=== PATIENT | female | born 1995 | race Caucasian/White ===

== ENCOUNTER 2018-06-12 16:17 | Emergency (ER) | payer SELFPAY ==
[~2018-06-12] VITALS: Wt 60.8 kg
[2018-06-12] MEDS ORDERED: ANTIBIOTIC28.4 GM T (17:11)
[2018-06-12] MEDS ORDERED: CLINDAMYCIN HC300 MG PO (17:11)
[2018-09-11] MEDS ORDERED: DOXYCYCLINE100 M3 PO (14:01)
== END 2018-06-12 17:13 | disposition home or self-care (01) ==
LOC: ED 16:17
DX: K08.89 Other specified disorders of teeth and supporting structures (principal); R21 Rash and other nonspecific skin eruption

== ENCOUNTER 2018-09-04 03:44 | Emergency (ER) | payer SELFPAY ==
[~2018-09-04] VITALS: Ht 170.1 cm; Wt 65.8 kg
[~2018-09-04 03:44] MED LIST: ANTIBIOTIC28.4 GM T; CLINDAMYCIN HC300 MG PO
[2018-09-04 04:05] LABS: BILIRUBIN NEGATIVE (NEGATIVE); BLOOD NEGATIVE (NEGATIVE); CLARITY SL CLOUDY (CLEAR); COLOR YELLOW (YELLOW); GLUCOSE NEGATIVE (NEGATIVE); KETONE NEGATIVE (NEGATIVE); LEUKO ESTERASE NEGATIVE (NEGATIVE); NITRITE NEGATIVE (NEGATIVE); SPECIFIC GRAVITY >= 1.030 (1.005-1.030); UROBILINOGEN 0.2 E.U./dl (0.2-1.0)
[2018-09-04 04:17] LABS: BACTERIA 1+; EPITHELIAL CELLS 45-50
[2018-09-11] MEDS ORDERED: DOXYCYCLINE100 M3 PO (14:01)
== END 2018-09-04 04:44 | disposition left against medical advice (07) ==
LOC: ED 03:44
PROVIDERS: Emergency Medicine
DX: Z11.3 Encounter for screening for infections with a predominantly sexual mode of transmission (principal); Z32.02 Encounter for pregnancy test, result negative; Z79.2 Long term (current) use of antibiotics

== ENCOUNTER 2018-09-08 13:53 | Emergency (ER) | payer SELFPAY ==
[~2018-09-08] VITALS: Wt 65.8 kg
[2018-09-08] MEDS ORDERED: VIBRAMYCIN100 MG PO (14:02)
[2018-09-11] MEDS ORDERED: DOXYCYCLINE100 M3 PO (14:01)
== END 2018-09-08 14:27 | disposition home or self-care (01) ==
LOC: ED 13:53
DX: A54.9 Gonococcal infection, unspecified (principal)

== ENCOUNTER 2018-11-10 20:35 | Emergency (ER) | payer SELFPAY ==
[~2018-11-10] VITALS: Ht 170.1 cm; Wt 69.4 kg
[~2018-11-10 20:35] MED LIST changes: +DOXYCYCLINE100 M3 PO; +VIBRAMYCIN100 MG PO
[2018-11-10 21:16] LABS: BILIRUBIN NEGATIVE (NEGATIVE); BLOOD TRACE-LYSED (NEGATIVE); CLARITY SL CLOUDY (CLEAR); COLOR YELLOW (YELLOW); GLUCOSE NEGATIVE (NEGATIVE); KETONE NEGATIVE (NEGATIVE); LEUKO ESTERASE 3+ (NEGATIVE); NITRITE NEGATIVE (NEGATIVE); SPECIFIC GRAVITY <= 1.005 (1.005-1.030); UROBILINOGEN 0.2 E.U./dl (0.2-1.0)
[2018-11-10 21:26] LABS: BACTERIA 1+; RBC 0-2 rbc/hpf (0-2)
[2018-11-10] MEDS ORDERED: SEPTDS PO (22:04)
== END 2018-11-10 22:30 | disposition home or self-care (01) ==
LOC: ED 20:35
PROVIDERS: Nurse Practitioner Family
DX: N89.8 Other specified noninflammatory disorders of vagina (principal); Z20.2 Contact with and (suspected) exposure to infections with a predominantly sexual mode of transmission

== ENCOUNTER 2018-11-13 16:54 | Emergency (ER) | payer SELFPAY ==
[~2018-11-13] VITALS: Ht 170.1 cm; Wt 69.4 kg
[~2018-11-13 16:54] MED LIST changes: +SEPTDS PO
[2018-11-13] MEDS ORDERED: CEPHALEXIN500 M1 PO (17:48)
== END 2018-11-13 18:00 | disposition home or self-care (01) ==
LOC: ED 16:54
DX: R21 Rash and other nonspecific skin eruption (principal); L08.9 Local infection of the skin and subcutaneous tissue, unspecified

== ENCOUNTER 2018-12-13 19:51 | Emergency (ER) | payer SELFPAY ==
[~2018-12-13] VITALS: Wt 54.4 kg
[~2018-12-13 19:51] MED LIST changes: +CEPHALEXIN500 M1 PO
[2018-12-13] MEDS ORDERED: DOXYCYCLINE100 M3 PO (20:32)
[2018-12-13 20:57] LABS: BILIRUBIN NEGATIVE (NEGATIVE); BLOOD NEGATIVE (NEGATIVE); CLARITY CLEAR (CLEAR); COLOR YELLOW (YELLOW); GLUCOSE NEGATIVE (NEGATIVE); KETONE NEGATIVE (NEGATIVE); LEUKO ESTERASE 1+ (NEGATIVE); NITRITE NEGATIVE (NEGATIVE); PH 7.5 (5.0-9.0); UROBILINOGEN 0.2 E.U./dl (0.2-1.0)
[2018-12-13 21:02] LABS: EPITHELIAL CELLS 16-20
== END 2018-12-13 21:05 | disposition home or self-care (01) ==
LOC: ED 19:51
PROVIDERS: Physician Assistant
DX: Z20.2 Contact with and (suspected) exposure to infections with a predominantly sexual mode of transmission (principal)

== ENCOUNTER 2019-01-06 18:09 | Emergency (ER) | payer SELFPAY ==
[~2019-01-06] VITALS: Ht 170.1 cm; Wt 68.0 kg
[2019-01-06 18:43] LABS: BILIRUBIN NEGATIVE (NEGATIVE); BLOOD NEGATIVE (NEGATIVE); CLARITY CLEAR (CLEAR); COLOR YELLOW (YELLOW); GLUCOSE NEGATIVE (NEGATIVE); KETONE NEGATIVE (NEGATIVE); LEUKO ESTERASE NEGATIVE (NEGATIVE); NITRITE NEGATIVE (NEGATIVE); PH 6.5 (5.0-9.0); UROBILINOGEN 0.2 E.U./dl (0.2-1.0)
[2019-01-06 18:48] LABS: BASO % 0.5 % (0.0-1.0); EOS % 0.3 % (1.0-4.0); HEMATOCRIT 41.3 % (37.0-47.0); HEMOGLOBIN 14.1 g/dl (12.0-16.0); LYMPH # 1.4 10*3/uL (1.3-4.4); MEAN CELL VOLUME 94.3 fl (81.0-99.0); MEAN CORPUSCULAR HGB 32.2 pg (27.0-31.0); MEAN CORPUSCULAR HGB CONC 34.1 g/dl (33.0-37.0); MEAN PLATELET VOLUME 10.4 fl (9.6-12.3); MONO # 0.5 10*3/uL (0.1-1.0); MONO % 5.9 % (3.0-9.0); NEUT # 6.6 10*3/uL (2.3-7.9); NEUT % 77.1 % (47.0-73.0); PLATELET COUNT AUTOMATED 270 10*3/uL (130-400); RED BLOOD COUNT 4.38 10*6/uL (4.10-5.10); RED CELL DISTRI WIDTH 11.5 % (0-14.5); WHITE BLOOD COUNT 8.6 10*3/uL (4.8-10.8)
[2019-01-06 18:54] LABS: BACTERIA TRACE; EPITHELIAL CELLS 16-20; MUCOUS 1+
[2019-01-06 18:59] LABS: ALBUMIN 3.8 gm/dl (3.1-4.5); ALKALINE PHOSPHATASE 47 U/L (45-117); BUN 13 mg/dl (7-24); CHLORIDE 107 mmol/L (98-107); CREATININE 0.96 mg/dL (0.55-1.02); LIPASE 61 U/L (73-393); POTASSIUM 3.9 mmol/L (3.5-5.1); SGOT/AST 13 IU/L (3-35); SGPT/ALT 18 U/L (12-78); SODIUM 140 mmol/L (136-145); TOTAL PROTEIN 7.1 gm/dL (6.4-8.2)
[2019-01-06] MEDS ORDERED: ZOFRAN4 MG PO (19:57)
== END 2019-01-06 19:56 | disposition home or self-care (01) ==
LOC: ED 18:09
PROVIDERS: Physician Assistant
DX: B34.9 Viral infection, unspecified (principal); Z79.2 Long term (current) use of antibiotics

== ENCOUNTER 2019-01-19 15:42 | Emergency (ER) | payer SELFPAY ==
[~2019-01-19] VITALS: Ht 172.7 cm; Wt 65.8 kg
[~2019-01-19 15:42] MED LIST changes: +ZOFRAN4 MG PO
[2019-01-21 00:07] LABS: GONOCOCCUS BY NAA Negative (Negative)
== END 2019-01-19 16:37 | disposition home or self-care (01) ==
LOC: ED 15:42
PROVIDERS: Nurse Practitioner Family
DX: Z20.2 Contact with and (suspected) exposure to infections with a predominantly sexual mode of transmission (principal); N89.8 Other specified noninflammatory disorders of vagina; Z79.2 Long term (current) use of antibiotics

== ENCOUNTER 2019-03-05 13:54 | Emergency (ER) | payer SELFPAY ==
[~2019-03-05] VITALS: Ht 170.1 cm; Wt 68.0 kg
[2019-03-05] MEDS ORDERED: IBU600 M1 PO (14:15)
== END 2019-03-05 14:21 | disposition home or self-care (01) ==
LOC: ED 13:54
DX: K08.89 Other specified disorders of teeth and supporting structures (principal)

== ENCOUNTER 2019-03-18 09:37 | Emergency (ER) | payer SELFPAY ==
[~2019-03-18] VITALS: Ht 170.1 cm; Wt 65.8 kg
[~2019-03-18 09:37] MED LIST changes: +IBU600 M1 PO
[2019-03-18 10:03] LABS: BILIRUBIN NEGATIVE (NEGATIVE); BLOOD NEGATIVE (NEGATIVE); CLARITY CLEAR (CLEAR); COLOR YELLOW (YELLOW); GLUCOSE NEGATIVE (NEGATIVE); KETONE NEGATIVE (NEGATIVE); LEUKO ESTERASE NEGATIVE (NEGATIVE); NITRITE NEGATIVE (NEGATIVE); PH 6.5 (5.0-9.0); SPECIFIC GRAVITY 1.015 (1.005-1.030); UROBILINOGEN 0.2 E.U./dl (0.2-1.0)
[2019-03-18 10:33] LABS: BACTERIA TRACE
[2019-03-22 03:04] LABS: GONOCOCCUS BY NAA Negative (Negative)
== END 2019-03-18 10:52 | disposition home or self-care (01) ==
LOC: ED 09:37
PROVIDERS: Nurse Practitioner Family
DX: N89.8 Other specified noninflammatory disorders of vagina (principal); Z20.2 Contact with and (suspected) exposure to infections with a predominantly sexual mode of transmission; Z79.899 Other long term (current) drug therapy; Z79.2 Long term (current) use of antibiotics